=== PATIENT | male | born 1980 | race Caucasian/White ===

== ENCOUNTER 2018-09-09 09:09 | Emergency (ER) | payer MEDICAID ==
[2018-09-09 09:33] VITALS: RESP 16
[2018-09-09] MEDS ORDERED: HYDROmorphone 1 MG/ML 1 ML SYRINGE IVP STA (09:44)
[2018-09-09] MEDS ORDERED: ONDANSETRON 4 MG/2 ML VIAL IVP STA (09:44)
[2018-09-09] MEDS ORDERED: SODIUM CHLORIDE 0.9% 1,000 ML IV STA (09:44)
[2018-09-09] MEDS ORDERED: KETOROLAC 30 MG/ML 1 ML VIAL IVP STA (09:44)
[2018-09-09 10:26] LABS: Appearance,Urine Clear (Clear); Bilirubin,Urine Negative (Negative); Blood,Urine Moderate (Negative); Color,Urine Yellow; Glucose,Urine (UA) Negative (Negative); Ketones,Urine Negative (Negative); Leukocyte Esterase,Urine Negative (Negative); Mucus,Urine Rare /hpf; Nitrite,Urine Negative (Negative); Protein,Urine Trace (Negative); RBC,Urine 30 /hpf (0-5); Specific Gravity,Urine 1.028 (1.001-1.035); Urobilinogen,Urine <2.0 mg/dL (<2.0); WBC,Urine 1 /hpf (0-5)
[2018-09-09 10:27] LABS: Basophils % (A) 0 %; Eosinophils # (A) 0.1 k/uL (0-0.7); Eosinophils % (A) 1 %; HCT 45.4 % (39.0-53.0); HGB 15.5 gm/dL (13.0-17.5); Lymphocytes # (A) 1.4 k/uL (1.0-4.8); Lymphocytes % (A) 14 %; MCH 31.6 pg (25.0-35.0); Mean Platelet Volume 7.9; Monocytes # (A) 0.5 k/uL (0-1.0); Monocytes % (A) 5 %; Neutrophils # (A) 8.3 k/uL (1.3-7.7); Neutrophils % (A) 79 %; Platelet Count 209 k/uL (150-450); RBC 4.89 m/uL (4.30-5.90); RDW 12.6 % (11.5-15.5); WBC 10.5 k/uL (3.8-10.6)
[2018-09-09 10:30] LABS: ALT 22 U/L (21-72); AST 20 U/L (17-59); African American GFR (CKD) >90 (>60 ml/min/1.73 sqM); Albumin 4.4 g/dL (3.5-5.0); Alkaline Phosphatase 64 U/L (38-126); Amylase 49 U/L (30-110); Anion Gap 7 mmol/L; Blood Urea Nitrogen 13 mg/dL (9-20); Calcium 9.1 mg/dL (8.4-10.2); Carbon Dioxide 26 mmol/L (22-30); Chloride 108 mmol/L (98-107); Glucose 103 mg/dL (74-99); Lipase 43 U/L (23-300); Potassium 4.5 mmol/L (3.5-5.1); Sodium 141 mmol/L (137-145); Total Bilirubin 1.1 mg/dL (0.2-1.3); Total Protein 7.2 g/dL (6.3-8.2)
--- NOTE | 2018-09-09 10:37 | XR ---
EXAMINATION TYPE: XR KUB , 2 VIEWS DATE OF EXAM ORDERED: 09/09/2018 HISTORY: abdominal pain. COMPARISON: None. FINDINGS: Abdominal gas pattern is within normal limits. There is no evidence of obstruction or free air. No unusual calcifications are identified. IMPRESSION: NO ACUTE INTRA-ABDOMINAL ABNORMALITY.
--- NOTE | 2018-09-09 10:42 | CT ---
EXAMINATION TYPE: CT abdomen pelvis wo con DATE OF EXAM: 09/09/2018 COMPARISON: NONE HISTORY: Flank pain. CT DLP: 646.2 mGycm Automated exposure control for dose reduction was used. FINDINGS: There is some dependent atelectasis within the dependent portions of the lungs. No definite pleural fluid is seen. Within the abdomen, is evidence of old granulomatous disease within the spleen. The liver and gallbla dder are normal. Both adrenal glands are normal. The right kidney is normal. There is mild hydronephrosis involving the left kidney. There is hydroure ter. There is a 2.5 mm calculus at the left UVJ. Limited views of the pancreas are unremarkable. There is no significant retroperitoneal, iliac or inguinal adenopathy. The bladder is not distended. There is some mucosal thickening involving the sigmoid colon with other areas of mucosal thickening i nvolving the proximal descending colon. The appendix is normal. Small bowel loops are normal in caliber. There is no free fluid and no free air identified. No bony lesion is seen. IMPRESSION: 1. 2.5 MM CALCULUS AT THE LEVEL OF THE LEFT UVJ CAUSING MILD TO MODERATE LEFT-SIDED HYDRONEPHROSIS. 2. AREAS OF THICKENING OF THE COLONIC MUCOSA IN THE SIGMOID COLON AND PROXIMAL ASCENDING COLON. PLEAS E CORRELATE FOR COLITIS.
--- NOTE | 2018-09-09 10:51 | ED ---
General Adult HPI - General Chief complaint: Abdominal Pain Stated complaint: Kidney Stone Time Seen by Provider: 09/09/18 09:30 Source: patient, family, RN notes reviewed Mode of arrival: ambulatory Limitations: no limitations - History of Present Illness Initial comments: This is a 38-year-old male presents emergency Department complaining of a three- day history of left back pain indicating recent. Patient states over the last few days is coming down but this morning it became extremely bad pain in his been constant. Patient states there is no abdominal pain there is no radiation of pain. Patient denies any dysuria hematuria or urinary frequency. Patient denies any fever chills per patient denies any nausea vomiting or diarrhea. Patient has no history of kidney stones but states he has a strong family history of kidney stones. - Related Data Previous Rx's Medication Instructions Recorded Ketorolac [Toradol] 10 mg PO Q6HR #15 tab 09/09/18 Tamsulosin [Flomax] 0.4 mg PO DAILY #10 cap 09/09/18 Allergies Allergy/AdvReac Type Severity Reaction Status Date / Time No Known Allergies Allergy Verified 09/09/18 09:32 Review of Systems ROS Statement: Those systems with pertinent positive or pertinent negative responses have been documented in the HPI. ROS Other: All systems not noted in ROS Statement are negative. Past Medical History Past Medical History: No Reported History History of Any Multi-Drug Resistant Organisms: None Reported Past Surgical History: No Surgical Hx Reported Past Psychological History: No Psychological Hx Reported Smoking Status: Current every day smoker Past Alcohol Use History: Occasional Past Drug Use History: None Reported General Exam - General Exam Comments Initial Comments: GENERAL: Patient is well-developed and well-nourished. Patient is nontoxic and well- hydrated and is in moderate distress. ENT: Neck is soft and supple. No significant lymphadenopathy is noted. Oropharynx is clear. Moist mucous membranes. Neck has full range of motion without eliciting any pain. EYES: The sclera were anicteric and conjunctiva were pink and moist. Extraocular movements were intact and pupils were equal round and reactive to light. Eyelids were unremarkable. PULMONARY: Unlabored respirations. Good breath sounds bilaterally. No audible rales rhonchi or wheezing was noted. CARDIOVASCULAR: There is a regular rate and rhythm without any murmurs gallops or rubs. ABDOMEN: Soft and nontender with normal bowel sounds. No palpable organomegaly was noted. There is no palpable pulsatile mass. SKIN: Skin is clear with no lesions or rashes and otherwise unremarkable. NEUROLOGIC: Patient is alert and oriented x3. Cranial nerves II through XII are grossly intact. Motor and sensory are also intact. Normal speech, volume and content. Symmetrical smile. MUSCULOSKELETAL: Normal extremities with adequate strength and full range of motion. Patient has moderate CVA tenderness LYMPHATICS: No significant lymphadenopathy is noted PSYCHIATRIC: Normal psychiatric evaluation. Limitations: no limitations Course Vital Signs 09/09/18 09:30 Temperature 97.9 F Pulse Rate 61 Respiratory 16 Rate Blood Pressure 136/77 O2 Sat by Pulse 98 Oximetry Medical Decision Making - Medical Decision Making Computed tomography scan shows a left-sided UVJ stone with mild hydroureter and hydronephrosis. I'll begin the room to reevaluate the patient is doing considerably better. Patient was given a liter fluid in the emergency department. - Lab Data Result diagrams: 09/09/18 10:00 09/09/18 10:00 Lab Results 09/09/18 09/09/18 09/09/18 Range/Units 10:00 10:00 10:00 WBC 10.5 (3.8-10.6) k/uL RBC 4.89 (4.30-5.90) m/uL Hgb 15.5 (13.0-17.5) gm/dL Hct 45.4 (39.0-53.0) % MCV 93.0 (80.0-100.0) fL MCH 31.6 (25.0-35.0) pg MCHC 34.0 (31.0-37.0) g/dL RDW 12.6 (11.5-15.5) % Plt Count 209 (150-450) k/uL Neutrophils % 79 % Lymphocytes % 14 % Monocytes % 5 % Eosinophils % 1 % Basophils % 0 % Neutrophils # 8.3 H (1.3-7.7) k/uL Lymphocytes # 1.4 (1.0-4.8) k/uL Monocytes # 0.5 (0-1.0) k/uL Eosinophils # 0.1 (0-0.7) k/uL Basophils # 0.0 (0-0.2) k/uL Sodium 141 (137-145) mmol/L Potassium 4.5 (3.5-5.1) mmol/L Chloride 108 H (98-107) mmol/L Carbon Dioxide 26 (22-30) mmol/L Anion Gap 7 mmol/L BUN 13 (9-20) mg/dL Creatinine 0.95 (0.66-1.25) mg/dL Est GFR (CKD-EPI)AfAm >90 (>60 ml/min/1.73 sqM) Est GFR (CKD-EPI)NonAf >90 (>60 ml/min/1.73 sqM) Glucose 103 H (74-99) mg/dL Calcium 9.1 (8.4-10.2) mg/dL Total Bilirubin 1.1 (0.2-1.3) mg/dL AST 20 (17-59) U/L ALT 22 (21-72) U/L Alkaline Phosphatase 64 (38-126) U/L Total Protein 7.2 (6.3-8.2) g/dL Albumin 4.4 (3.5-5.0) g/dL Amylase 49 (30-110) U/L Lipase 43 (23-300) U/L Urine Color Yellow Urine Appearance Clear (Clear) Urine pH 6.0 (5.0-8.0) Ur Specific [place] 1.028 (1.001-1.035) Urine Protein Trace H (Negative) Urine Glucose (UA) Negative (Negative) Urine Ketones Negative (Negative) Urine Blood Moderate H (Negative) Urine Nitrite Negative (Negative) Urine Bilirubin Negative (Negative) Urine Urobilinogen <2.0 (<2.0) mg/dL Ur Leukocyte Esterase Negative (Negative) Urine RBC 30 H (0-5) /hpf Urine WBC 1 (0-5) /hpf Urine Mucus Rare H (None) /hpf Disposition Clinical Impression: Kidney stone Disposition: HOME SELF-CARE Condition: Good Instructions (If sedation given, give patient instructions): Kidney Stones (ED), How to Strain Your Urine (ED) Prescriptions: Tamsulosin [Flomax] 0.4 mg PO DAILY #10 cap Ketorolac [Toradol] 10 mg PO Q6HR #15 tab Is patient prescribed a controlled substance at d/c from ED?: No Referrals: Phi Ellis MD [Primary Care Provider] - 1-2 days Time of Disposition: 10:49
[2018-09-09] MEDS ORDERED: HYDROmorphone 0.5 MG/0.5 ML SYRINGE IVP STA (11:40)
[2018-09-09 11:51] VITALS: BP 116/77; PULSE 69; TEMP 98.7
== END 2018-09-09 11:53 | disposition home or self-care (01) ==
LOC: EC 09:09
DX: N13.2 Hydronephrosis with renal and ureteral calculous obstruction (principal); F17.200 Nicotine dependence, unspecified, uncomplicated
CPT/HCPCS: 36415; 80053; 82150; 83690; 85025; 81001; 74018; 74176; 99284; 96374; 96375 ×2; 96376; 96361 ×2; J2405; J1885; J1170 ×2

== ENCOUNTER 2021-01-23 10:32 | Emergency (ER) | payer MEDICAID ==
[2021-01-23 11:23] VITALS: BP 124/89; PULSE 73; RESP 18; TEMP 97.8
--- NOTE | 2021-01-23 12:46 | ED ---
General Adult HPI - General Chief complaint: Skin/Abscess/Foreign Body Stated complaint: rash Time Seen by Provider: 01/23/21 11:51 Source: patient Mode of arrival: ambulatory Limitations: no limitations - History of Present Illness Initial comments: 40-year-old male presents to the emergency department for evaluation of rash, onset Monday. Patient states the rash began on his chest after spending time in a hot tub on Monday. States he saw his family doctor who prescribed an antibiotic (bactrim) and topical ointment. Patient reports he stopped taking the antibiotic after 1 dose due to a tingling sensation in his mouth and lips. States the rash continued to spread to his neck and scalp throughout the week. States the rash spread to his hands and feet yesterday and is painful. States his mouth and nose feel raw today. Patient denies fever, chills, headache, ear pain, sore throat, chest pain, difficulty breathing, abdominal pain, nausea, vomiting, constipation, diarrhea, and dysuria. Additionally, patient does state that he was treated with 2 rounds of a Z-Nikolay, oral steroids, and two inhalers approximately 2-3 weeks ago for an upper respiratory that was concerning for COVID. - Related Data Home Medications Medication Instructions Recorded Confirmed Dextroamphetamine/Amphetamine 20 mg PO DAILY 09/09/18 09/09/18 [Adderall] Previous Rx's Medication Instructions Recorded Ketorolac [Toradol] 10 mg PO Q6HR #15 tab 09/09/18 Tamsulosin [Flomax] 0.4 mg PO DAILY #10 cap 09/09/18 predniSONE [Deltasone] See Taper PO DAILY 12 Days #12 tab 01/23/21 Allergies Allergy/AdvReac Type Severity Reaction Status Date / Time No Known Allergies Allergy Verified 01/23/21 11:23 Review of Systems ROS Statement: Those systems with pertinent positive or pertinent negative responses have been documented in the HPI. ROS Other: All systems not noted in ROS Statement are negative. Past Medical History Past Medical History: No Reported History History of Any Multi-Drug Resistant Organisms: None Reported Past Surgical History: No Surgical Hx Reported Past Psychological History: No Psychological Hx Reported Smoking Status: Current every day smoker Past Alcohol Use History: Occasional Past Drug Use History: None Reported General Exam Limitations: no limitations General appearance: alert (This is a well-developed, well-nourished male in no acute distress. Initial temperature 97.8, pulse 73, respirations 18, blood pressure 124/89, pulse ox 98% on room air.), in no apparent distress Eye exam: Present: normal appearance, PERRL, EOMI, other (Denies pain) ENT exam: Present: mucous membranes moist (Intact with no blistering, scabbing, or erosions), other (Small area of erosion on the hard palate; no lesions, blisters, or ulcers noted.) Neck exam: Present: full ROM, other (Maculopapular rash coalescing on the anterior aspect of neck; scattered appearance of maculopapular rash on posterior aspect neck). Absent: lymphadenopathy Respiratory exam: Present: normal lung sounds bilaterally. Absent: respiratory distress, wheezes, rales, rhonchi, stridor, chest wall tenderness Cardiovascular Exam: Present: regular rate, normal rhythm, normal heart sounds. Absent: systolic murmur, diastolic murmur, rubs, gallop, clicks GI/Abdominal exam: Present: soft, normal bowel sounds. Absent: distended, tenderness, guarding, rebound, rigid Neurological exam: Present: alert, oriented X3, CN II-XII intact Psychiatric exam: Present: normal affect, normal mood Skin exam: Present: warm, dry, rash Expanded Type of lesion: Present: rash Distribution of rash: other (Confluent, urticarial rash on anterior chest wall extending to the neck. Scattered maculopapular rash on upper back extending to the posterior aspect of the neck and scalp. Painful erythematous coalescing lesions on the palms. Painful scattered erythematous lesions soles.) Course Vital Signs 01/23/21 11:20 Temperature 97.8 F Pulse Rate 73 Respiratory 18 Rate Blood Pressure 124/89 O2 Sat by Pulse 98 Oximetry - Reevaluation(s) Reevaluation #1: 01/23/21 13:17 Dr. Huerta present at bedside to evaluate patient. 01/23/21 15:22 Patient is resting comfortably. Reports itching is less intense. Present at bedside. 01/23/21 16:[address] Wilkinson regarding patient's pattern of rash. He recommended additional blood work, Solu-Medrol, and discharge home with oral steroid taper pack; follow-up with dermatology. Medical Decision Making - Medical Decision Making 40-year-old male presents to the emergency department for evaluation of extensive rash. Patient is well-appearing with a diffuse, coalescing, erythematous rash on the anterior upper chest extending to the neck. Has a maculopapular rash on the upper back extending to the neck and scalp. Developed painful erythematous lesions on the palms and soles yesterday. Also has a small erosion on the hard palate. No blistering, ulcerations, or scabbing noted to oral mucosa. 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 All resulted labs were within normal limits. Syphilis and HIV serology is pending. This patient's case was discussed with my attendings, Dr. Duncan and Dr. Huerta. In addition, I did speak with Dr. Wilkinson who recommends a dose of IV steroids, followed by an oral taper regimen. Patient was instructed to follow-up with dermatology for further evaluation and treatment. Return parameters were discussed in detail. Patient verbalizes understanding and agrees with this plan. - Lab Data Result diagrams: 01/23/21 12:55 01/23/21 12:55 Lab Results 01/23/21 01/23/21 Range/Units 12:55 12:55 WBC 7.2 (3.8-10.6) k/uL RBC 4.70 (4.30-5.90) m/uL Hgb 15.8 (13.0-17.5) gm/dL Hct 45.6 (39.0-53.0) % MCV 97.0 (80.0-100.0) fL MCH 33.6 (25.0-35.0) pg MCHC 34.6 (31.0-37.0) g/dL RDW 13.1 (11.5-15.5) % Plt Count 206 (150-450) k/uL MPV 8.3 Neutrophils % 70 % Lymphocytes % 21 % Monocytes % 4 % Eosinophils % 2 % Basophils % 1 % Neutrophils # 5.0 (1.3-7.7) k/uL Lymphocytes # 1.5 (1.0-4.8) k/uL Monocytes # 0.3 (0-1.0) k/uL Eosinophils # 0.2 (0-0.7) k/uL Basophils # 0.1 (0-0.2) k/uL ESR 6 (0-15) mm/hr Sodium 138 (137-145) mmol/L Potassium 3.9 (3.5-5.1) mmol/L Chloride 105 (98-107) mmol/L Carbon Dioxide 27 (22-30) mmol/L Anion Gap 6 mmol/L BUN 12 (9-20) mg/dL Creatinine 0.75 (0.66-1.25) mg/dL Est GFR (CKD-EPI)AfAm >90 (>60 ml/min/1.73 sqM) Est GFR (CKD-EPI)NonAf >90 (>60 ml/min/1.73 sqM) Glucose 95 (74-99) mg/dL Calcium 9.4 (8.4-10.2) mg/dL Total Bilirubin 1.0 (0.2-1.3) mg/dL AST 26 (17-59) U/L ALT 29 (4-49) U/L Alkaline Phosphatase 86 (38-126) U/L C-Reactive Protein 0.5 (<1.0) mg/dL Total Protein 7.1 (6.3-8.2) g/dL Albumin 4.1 (3.5-5.0) g/dL Disposition Clinical Impression: Dermatitis Disposition: HOME SELF-CARE Condition: Stable Instructions (If sedation given, give patient instructions): Dermatitis (ED) Additional Instructions: Take oral steroids as prescribed. Follow-up with dermatology as directed. Return to the emergency department with any progression of illness, worsening, or concerning symptoms. Prescriptions: predniSONE [Deltasone] See Taper PO DAILY 12 Days #12 tab Is patient prescribed a controlled substance at d/c from ED?: No Referrals: Phi Ellis MD [Primary Care Provider] - 1-2 days Honorio Byrd MD [STAFF PHYSICIAN] - 1-2 days Time of Disposition: 16:03
[2021-01-23] MEDS ORDERED: SODIUM CHLORIDE 0.9% 1,000 ML IV STA (13:06)
[2021-01-23] MEDS ORDERED: diphenhydrAMINE 50 MG/ML 1 ML VIAL IVP STA (13:06)
[2021-01-23 13:16] LABS: Basophils # (A) 0.1 k/uL (0-0.2); Basophils % (A) 1 %; Eosinophils # (A) 0.2 k/uL (0-0.7); Eosinophils % (A) 2 %; HCT 45.6 % (39.0-53.0); HGB 15.8 gm/dL (13.0-17.5); Lymphocytes # (A) 1.5 k/uL (1.0-4.8); Lymphocytes % (A) 21 %; MCH 33.6 pg (25.0-35.0); MCHC 34.6 g/dL (31.0-37.0); Mean Platelet Volume 8.3; Monocytes # (A) 0.3 k/uL (0-1.0); Monocytes % (A) 4 %; Neutrophils % (A) 70 %; Platelet Count 206 k/uL (150-450); RDW 13.1 % (11.5-15.5); WBC 7.2 k/uL (3.8-10.6)
[2021-01-23 13:30] LABS: ALT 29 U/L (4-49); AST 26 U/L (17-59); African American GFR (CKD) >90 (>60 ml/min/1.73 sqM); Albumin 4.1 g/dL (3.5-5.0); Alkaline Phosphatase 86 U/L (38-126); Anion Gap 6 mmol/L; Blood Urea Nitrogen 12 mg/dL (9-20); C Reactive Protein 0.5 mg/dL (<1.0); Calcium 9.4 mg/dL (8.4-10.2); Carbon Dioxide 27 mmol/L (22-30); Chloride 105 mmol/L (98-107); Glucose 95 mg/dL (74-99); Non-African American GFR(CKD) >90 (>60 ml/min/1.73 sqM); Potassium 3.9 mmol/L (3.5-5.1); Sodium 138 mmol/L (137-145); Total Protein 7.1 g/dL (6.3-8.2)
[2021-01-23 15:03] LABS: Erythrocyte Sedimentation Rate 6 mm/hr (0-15)
[2021-01-23] MEDS ORDERED: methylPREDNISolone SOD SUCCI 125 MG/2 ML VIAL IV STA (15:30)
[2021-01-25 15:37] LABS: HIV 2 AB Non-Reactive (Non-Reactive); HIV AB P24 Non-Reactive (Non-Reactive); HIV P24 AG Non-Reactive (Non-Reactive)
== END 2021-01-23 16:40 | disposition home or self-care (01) ==
LOC: EC 10:32
DX: L30.9 Dermatitis, unspecified (principal); F17.200 Nicotine dependence, unspecified, uncomplicated; Z20.822 Contact with and (suspected) exposure to COVID-19
CPT/HCPCS: 36415; 80053; 85652; 85025; 86140; 86780; 87390; 99284; 96374; 96375; 96361; J1200; J2930

== ENCOUNTER 2021-10-22 11:58 | Emergency (ER) | payer MEDICAID ==
[2021-10-22 12:01] VITALS: PULSE 80
[2021-10-22] MEDS ORDERED: LIDOCAINE 1% INJ 10MG/ML (5 ML VIAL-PF) SQ ONE (12:24)
--- NOTE | 2021-10-22 12:54 | ED ---
General Adult HPI - General Chief complaint: Skin/Abscess/Foreign Body Stated complaint: Abcess Time Seen by Provider: 10/22/21 12:00 Source: patient, RN notes reviewed, old records reviewed Mode of arrival: ambulatory Limitations: no limitations - History of Present Illness Initial comments: This is a 41-year-old male presents emergency Department complaining that he has an abscess in the perineum area. Patient states she's had one before and usually her Biaxin resolved. Patient states it started about week ago. 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 Patient denies any fever chills. Patient denies any pain in the rectum. - Related Data Home Medications Medication Instructions Recorded Confirmed Amoxic-Pot Clav 875-125Mg 1 tab PO BID 10/22/21 10/22/21 [Augmentin 875-125] Previous Rx's Medication Instructions Recorded Sulfamethox-Tmp 800-160Mg [Bactrim 1 each PO Q12HR #20 tab 10/22/21 DS 800-160 mg] Allergies Allergy/AdvReac Type Severity Reaction Status Date / Time No Known Allergies Allergy Verified 10/22/21 12:28 Review of Systems ROS Statement: Those systems with pertinent positive or pertinent negative responses have been documented in the HPI. ROS Other: All systems not noted in ROS Statement are negative. Past Medical History Past Medical History: No Reported History History of Any Multi-Drug Resistant Organisms: None Reported Past Surgical History: No Surgical Hx Reported Past Psychological History: No Psychological Hx Reported Smoking Status: Current every day smoker Past Alcohol Use History: Occasional Past Drug Use History: None Reported General Exam - General Exam Comments Initial Comments: GENERAL Patient is well-developed and well-nourished. Patient is in mild distress. EYES Patient's pupils are equal and round. Extraocular motion is intact SKIN In the perineum there is a abscess just left of midline is fluctuant there is no redness is extremely painful to palpation. NEURO The patient is alert and oriented 3 PYSCH Patient has normal interpersonal interactions. MUSCULOSKELETAL All 4 extremities have full range of motion Limitations: no limitations Course Vital Signs 10/22/21 11:59 Temperature 98.1 F Pulse Rate 80 Respiratory 20 Rate Blood Pressure 129/83 O2 Sat by Pulse 97 Oximetry Procedures - Incision & Drainage Consent Obtained: verbal consent Site: other (Perineum just left of midline) Anesthetic Used: lidocaine 1% I&D Cleaning Method: Betadine Scalpel Used: #15 Needle Aspiration Performed?: No Irrigation Performed?: No I&D Drainage Obtained: Pus Culture Obtained?: Yes Complications: pain Medical Decision Making - Medical Decision Making Copious amount of pus was drained. Disposition Clinical Impression: Perirectal abscess Disposition: HOME SELF-CARE Instructions (If sedation given, give patient instructions): Abscess Incision and Drainage (ED), Abscess (ED) Additional Instructions: If fluid reaccumulate patient needs to return to the emergency department patient should also return if there is any fevers or any new symptoms. Prescriptions: Sulfamethox-Tmp 800-160Mg [Bactrim DS 800-160 mg] 1 each PO Q12HR #20 tab Is patient prescribed a controlled substance at d/c from ED?: No Referrals: Phi Ellis MD [Primary Care Provider] - 1-2 days Time of Disposition: 12:53
[2021-10-22 13:13] VITALS: BP 127/88; RESP 18; TEMP 98.6
== END 2021-10-22 13:13 | disposition home or self-care (01) ==
LOC: EC 11:58
DX: K61.1 Rectal abscess (principal); F17.200 Nicotine dependence, unspecified, uncomplicated
CPT/HCPCS: 87070; 87205; 10060; 99282; J2001

== ENCOUNTER 2022-10-29 13:07 | Emergency (ER) | payer MEDICAID ==
[2022-10-29 13:12] VITALS: TEMP 98
[2022-10-29] MEDS ORDERED: MORPHINE SULFATE 4 MG/ML SYRINGE IVP STA (13:26)
[2022-10-29] MEDS ORDERED: ONDANSETRON 4 MG/2 ML VIAL IVP STA (13:34)
[2022-10-29] MEDS ORDERED: LIDOCAINE 2% INJ 20 MG/ML (20 ML MDV) SQ STA (13:37)
[2022-10-29] MEDS ORDERED: HYDROmorphone 1 MG/ML 1 ML SYRINGE IVP STA (13:45)
[2022-10-29] MEDS ORDERED: SODIUM CHLORIDE 0.9% 1,000 ML IV ONE (13:58)
--- NOTE | 2022-10-29 14:08 | XR ---
EXAMINATION TYPE: XR foot limited LT, XR ankle limited LT DATE OF EXAM: 10/29/2022 1:52 PM INDICATION: Patient age:Male; 42 years old; Reason for study: trauma; [facility]. COMPARISON: None TECHNIQUE: The left foot was examined in the AP and lateral projections. The left ankle is examined in AP and lateral projections. FINDINGS: No evidence of any acute osseous pathology. No evidence of soft tissue swelling. Joints are preserve d. Incidental note is made of symphalangism of the fifth distal interphalangeal joint. IMPRESSION: No evidence of acute fracture.
--- NOTE | 2022-10-29 14:49 | ED ---
Wound/Laceration HPI - General Chief Complaint: Wound/Laceration Stated Complaint: Left Leg Laceration Time Seen by Provider: 10/29/22 13:22 Source: patient Mode of arrival: wheelchair Limitations: no limitations - History of Present Illness Initial Comments: Patient is a 42-year-old male presents emergency room with a laceration to his left lower leg which he obtained by accident while he was cutting wood with his chainsaw prior to arrival. He was able to control bleeding at the scene with a pressure dressing of a towel with duct tape. He reports some numbness and tingling in his foot but believes that this was due to the dressing as after the dressing was removed numbness and tingling subsided. Range of motion is painful in his ankle and lower limb but is full. He denies any injury to any other location. He is unsure regarding his tetanus status. Overall he is healthy and does not take any medications on a regular basis. - Related Data Home Medications Medication Instructions Recorded Confirmed Dextroamphetamine/Amphetamine 15 mg PO DAILY 11/03/22 11/04/22 [Adderall Xr 15 mg Capsule] Previous Rx's Medication Instructions Recorded HYDROcodone/APAP 5-325MG [[place] 1 - 2 tab PO Q6HR PRN 3 Days #24 10/29/22 5-325] tab Aspirin 81 mg PO BID 30 Days #60 tab 11/04/22 Cyclobenzaprine [Flexeril] 5 mg PO TID PRN 10 Days #30 tablet 11/04/22 Diclofenac Sodium [Voltaren] 75 mg PO BID 30 Days #60 tab 11/04/22 traMADol HCL 50 mg PO Q6H 7 Days #28 tab 11/04/22 Allergies Allergy/AdvReac Type Severity Reaction Status Date / Time No Known Allergies Allergy Verified 11/04/22 11:47 Review of Systems ROS Statement: Those systems with pertinent positive or pertinent negative responses have been documented in the HPI. ROS Other: All systems not noted in ROS Statement are negative. Past Medical History Past Medical History: No Reported History History of Any Multi-Drug Resistant Organisms: None Reported Past Surgical History: No Surgical Hx Reported Past Psychological History: No Psychological Hx Reported Smoking Status: Current every day smoker Past Alcohol Use History: Occasional Past Drug Use History: None Reported General Exam Limitations: no limitations General appearance: alert, in no apparent distress Head exam: Present: atraumatic, normocephalic, normal inspection Eye exam: Present: normal appearance, PERRL, EOMI. Absent: scleral icterus, conjunctival injection, periorbital swelling ENT exam: Present: normal exam, mucous membranes moist Neck exam: Present: normal inspection, full ROM Respiratory exam: Absent: respiratory distress, accessory muscle use Cardiovascular Exam: Present: regular rate GI/Abdominal exam: Present: soft. Absent: distended, tenderness, guarding, rebound, rigid Left Lower Leg exam: Present: full ROM, tenderness, swelling, laceration (Overall length 3 separate irregular lacerations with 2 lower lacerations merging toget her upper laceration approximately 6 cm in diameter with other two proximal approximately 3 and 4 cm respectively). Absent: abrasion, ecchymosis, deformity, crepitus, dislocation Foot/Toe exam: Present: normal inspection Neurovascular tendon exam: Present: no vascular compromise. Absent: pulse deficit, abnormal cap refill, sensory deficit, extremity cold to touch, pallor, foot drop Gait: observed and limited by pain Back exam: Present: normal inspection Neurological exam: Present: alert, oriented X3, CN II-XII intact Psychiatric exam: Present: normal affect, normal mood Skin exam: Present: other (Lacerations to left lower extremity as above) Course Vital Signs 10/29/22 10/29/22 10/29/22 13:09 13:58 15:14 Temperature 98.0 F Pulse Rate 68 76 Respiratory 18 20 Rate Blood Pressure 132/85 112/82 110/74 O2 Sat by Pulse 96 97 Oximetry Procedures - Laceration Laceration #1 Consent Obtained: verbal consent Indication: laceration Size (cm): 13 (Overall length 3 separate irregular lacerations with 2 lower lacerations merging together upper laceration approximately 6 cm in diameter with other two proximal approximately 3 and 4 cm respectively) Description: linear, flap, irregular Depth: simple, single layer Anesthetic Used: lidocaine 2% Anesthesia Technique: local infiltration Amount (mls): 2 Pre-repair: wound explored, irrigated extensively, deep structures intact Size of Sutures: 4-0 Number of Sutures: 18 Technique: simple, interrupted Patient Tolerated Procedure: well, no complications Medical Decision Making - Medical Decision Making Was pt. sent in by a medical professional or institution (, PA, MANAGER CUSTOM, urgent care, hospital, or penitentiary...) When possible be specific @ -No Did you speak to anyone other than the patient for history (EMS, parent, family, police, friend...)? What history was obtained from this source @ -No Did you review nursing and triage notes (agree or disagree)? Why? @ -I reviewed and agree with nursing and triage notes Were old charts reviewed (outside hosp., previous admission, EMS record, old EKG, old radiological studies, urgent care reports/EKG's, penitentiary records)? Report findings @ -No old charts were reviewed Differential Diagnosis (chest pain, altered mental status, abdominal pain women, abdominal pain men, vaginal bleeding, weakness, fever, dyspnea, syncope, headache, dizziness, GI bleed, back pain, seizure, CVA, palpatations, mental health, musculoskeletal)? @ -Differential Musculoskeletal Muscular strain, contusion, ligament sprain, fracture, arthritis, septic arthritis, bursitis, cellulitis, muscle spasm, nerve compression, DVT, arterial occlusion, herpes zoster, electrolyte abnormality, tumor.... This is not meant to be in all inclusive list EKG interpreted by me (3pts min.). @ -None done X-rays interpreted by me (1pt min.). @ -X-ray left foot and ankle no fracture, dislocation or foreign body. CT interpreted by me (1pt min.). @ -None done U/S interpreted by me (1pt. min.). @ -None done What testing was considered but not performed or refused? (CT, X-rays, U/S, labs)? Why? @ -None What meds were considered but not given or refused? Why? @ -None Did you discuss the management of the patient with other professionals (professionals i.e. , PA, MANAGER CUSTOM, lab, RT, psych nurse, social sciences professor, animal control specialist, t eacher, medical corps officer, director case)? Give summary @ -No Was smoking cessation discussed for >3mins.? @ -No Was critical care preformed (if so, how long)? @ -No Were there social determinants of health that impacted care today? How? (Homelessness, low income, unemployed, alcoholism, drug addiction, transportation, low edu. Level, literacy, decrease access to med. care, senior care, rehab)? @ -No Was there de-escalation of care discussed even if they declined (Discuss DNR or withdrawal of care, Hospice)? DNR status @ -No What co-morbidities impacted this encounter? (DM, HTN, Smoking, COPD, CAD, Cancer, CVA, ARF, Chemo, Hep., AIDS, mental health diagnosis, sleep apnea, morbid obesity)? @ -None Was patient admitted / discharged? Hospital course, mention meds given and ro josef, prescriptions, significant lab abnormalities, going to OR and other pertinent info. @ -42-year-old male presenting the emergency room with laceration to left lower extremity which he obtained while cutting wood with a chainsaw prior to his arrival. Bleeding was controlled on the scene. Will obtain x-ray of the lower extremity of ankle and foot to evaluate for any osseous pathology or foreign objects. Will plan for suture closure of lacerations after x-ray. Antibiotic therapy orally will be provided and pending x-ray will plan for IV versus no IV antibiotic therapy. Tetanus vaccination status unsure will update tetanus. X-ray negative for fracture, subluxation or foreign body. No indication for IV antibiotics. Will discharge with oral antibiotic therapy empirically given setting of injury. Due to severity of wound will give short course of [place] to utilize for pain as needed. Patient tolerated laceration closure well with localized infiltration of lidocaine and IV pain medication administration. Wound care discussed at length with patient and spouse at bedside. Questions and concerns answered. Return parameters emergency room discussed. Will discharge home in stable condition with sutures intact to lacerations to the left lower extremity advising return to the emergency department 7-10 days for suture removal and follow-up patient primary care provider as needed. Undiagnosed new problem with uncertain prognosis? @ -No Drug Therapy requiring intensive monitoring for toxicity (Heparin, Nitro, In sulin, Cardizem)? @ -No Were any procedures done? @ -Yes, laceration closure, see procedure for details. Diagnosis/symptom? @ -Laceration Acute, or Chronic, or Acute on Chronic? @ -Acute Uncomplicated (without systemic symptoms) or Complicated (systemic symptoms)? @ -Uncomplicated Side effects of treatment? @ -No Exacerbation, Progression, or Severe Exacerbation? @ -No Poses a threat to life or bodily function? How? (Chest pain, [place], AR, pneumonia, PE, COPD, DKA, ARF, appy, cholecystitis, CVA, Diverticulitis, Homicidal, Suicidal, threat to staff... and all critical care pts) @ -No Case discussed with Dr. Duncan. - Radiology Data Radiology results: report reviewed, image reviewed Disposition Clinical Impression: Laceration Disposition: HOME SELF-CARE Condition: Stable Instructions (If sedation given, give patient instructions): Care For Your Stitches (ED), Laceration (ED) Additional Instructions: Please keep wound clean and dry. Monitor for signs and symptoms of infection and seek medical attention as appropriate if symptoms occur. Please return to the emergency department for suture removal in 7-10 days. Please return to the Emergency Department if symptoms worsen or any other concerns. Prescriptions: HYDROcodone/APAP 5-325MG [[place] 5-325] 1 - 2 tab PO Q6HR PRN 3 Days #24 tab PRN Reason: Pain Is patient prescribed a controlled substance at d/c from ED?: Yes When asked, does pt state using other controlled substances?: No If prescribed controlled substance>3 days was MAPS reviewed?: Prescribed <3 Days If opioid is for acute pain is fill amount 7 days or less?: Yes Referrals: Phi Ellis MD [Primary Care Provider] - 1-2 days Time of Disposition: 14:49
[2022-10-29] MEDS ORDERED: DIPH,PERTUS(ACELL)TETVAC-LF 0.5 ML VIAL IM ONE (14:52)
[2022-10-29 15:16] VITALS: BP 110/74; PULSE 76; RESP 20
== END 2022-10-29 15:16 | disposition home or self-care (01) ==
LOC: EC 13:07
DX: S81.812A Laceration without foreign body, left lower leg, initial encounter (principal); F17.200 Nicotine dependence, unspecified, uncomplicated; Z23 Encounter for immunization; W31.2XXA Contact with powered woodworking and forming machines, initial encounter
CPT/HCPCS: 73600; 73620; 90715; 99283; 96374; 96375 ×2; 96361; 12005; 90471; J2001; J2270; J2405; J1170

== ENCOUNTER → 2022-10-31 | Outpatient (CLI) | payer MEDICAID ==
--- NOTE | 2022-11-02 18:46 | MR ---
EXAMINATION TYPE: MR ankle LT wo con DATE OF EXAM: 10/31/2022 COMPARISON: Radiograph 10/29/2022 HISTORY: 42-year-old male Lt ankle injury, Anterior ankle laceration from chainsaw, unable to bend an kle. S86.222A LACERAT MUSC/TEND ANT GRP AT LOW LEG LEVE TECHNIQUE: Multiplanar, multisequence images of the left ankle were obtained without IV contrast. FINDINGS: There is severe soft tissue swelling at the ankle. There is a through thickness defect through the tibialis anterior located 2.7 cm above the ankle join t line. The defect measures approximately 1.7 cm long. Refer to sagittal images 15 and 19 for the end s of the tendon. Secondary angulation and redundancy of the tibialis anterior at the level of the hin dfoot. The adjacent extensor hallucis longus and extensor digitorum longus appear intact. No evident injury to the underlying bone. No acute or healing fracture. No suspicious bone marrow lay ma. The tibiotalar joint is intact with small effusion along the posterior aspect of the joint. Subtalar joint is aligned. Preserved fatty signal in the sinus Tarsi. The tarsal tunnel is clear. There is pronounced thickening and inhomogeneous signal of the distal posterior tibial tendon fibers that courses along the plantar aspect of the foot. Moderate fluid along the distal fibers and suspect ed small insertional tear at the navicular. The deltoid spring ligament complex appears intact. The lateral peroneal tendons and lateral ligamentous complex appears intact. The syndesmosis appears intact. Mild thickening at the origin of the plantar fascia up to 5 mm with inhomogeneous signal of the deep fibers. Correlate for symptoms of plantar fasciitis. The Achilles tendon is intact. IMPRESSION: 1. Through thickness laceration of the tibialis anterior located approximately 2.7 cm above the ankle joint line. There is minimal retraction of the distal stump resulting in a defect spanning 1.7 cm. 2. Secondary extensive subcutaneous soft tissue swelling. 3. Moderate to severe distal tendinosis of the tibialis posterior especially of the fibers that cours e along the plantar aspect of the foot. There may be a tiny intrasubstance insertional tear of the fi bers that insert on the navicular. Associated tenosynovitis. 4. Mild thickening and increased signal at the origin of plantar fascia. Correlate for any symptoms o f plantar fasciitis.
== END | disposition home or self-care (01) ==
LOC: RADMRIMAIN 10:22
PROVIDERS: ATTEND Orthopaedic Surgery
DX: S86.222A Laceration of muscle(s) and tendon(s) of anterior muscle group at lower leg level, left leg, initial encounter (principal); M79.89 Other specified soft tissue disorders; M65.872 Other synovitis and tenosynovitis, left ankle and foot; F17.200 Nicotine dependence, unspecified, uncomplicated; X58.XXXA Exposure to other specified factors, initial encounter

== ENCOUNTER 2022-11-04 11:30 | Day surgery (SDC) | payer MEDICAID ==
[~2022-11-04 11:30] MED LIST: DEXAMETHASONE SOD PHOSPHATE 4 MG/ML 1 ML VIAL IV ONE; LIDOCAINE 1% (10MG/ML) FOR IV START INTRADERMA PRN; ONDANSETRON 4 MG/2 ML VIAL IVP ONE
[2022-11-04 11:55] VITALS: RESP 16
[2022-11-04] MEDS: LACTATED RINGERS 1,000 ML IV SCH ×2 (12:10→16:27)
[2022-11-04] MEDS ORDERED: PROPOFOL 10 MG/ML 20 ML VIAL IV ONE (13:50)
[2022-11-04] MEDS ORDERED: SUCCINYLCHOLINE CHLORIDE 200 MG/10 ML VIAL IV ONE (13:50)
[2022-11-04] MEDS ORDERED: fentaNYL (PF) 50 MCG/ML 2 ML AMP ONE (13:50)
[2022-11-04] MEDS ORDERED: MIDAZOLAM 2 MG/2 ML VIAL ONE (13:50)
[2022-11-04] MEDS ORDERED: KETAMINE 10 MG/ML 20 ML VIAL ONE (13:50)
[2022-11-04] MEDS ORDERED: LIDOCAINE 4% LTA KIT (4 ML) TOPICAL ONE (13:50)
[2022-11-04] MEDS ORDERED: BUPIVACAINE (PF) 0.5% 30 ML VIAL SQ ONE (15:27)
[2022-11-04 15:48] VITALS: TEMP 97
[2022-11-04] MEDS: HYDROmorphone 0.5 MG/0.5 ML SYRINGE IVP PRN ×3 (15:49→16:08)
--- NOTE | 2022-11-04 16:10 | P.OP ---
Date of Procedure: 11/04/22 Preoperative Diagnosis: 1. Left traumatic tibialis anterior tendon rupture 2. Current everyday cigarette smoker Postoperative Diagnosis: Same Procedure(s) Performed: 1. Open repair left tibialis anterior tendon laceration 2. Left gastrocnemius recession obtained through a separate incision Anesthesia: KEN Surgeon: Christian Lomeli [employer]erg[employer] Boat Finisher #1: Capri Mohr Estimated Blood Loss (ml): 10 IV fluids (ml): 800 Pathology: none sent Condition: stable Disposition: PACU Indications for Procedure: The patient is a very pleasant 42-year-old male with a medical history significant for smoking who sustained atraumatic chainsaw injury to the anterior aspect of his left ankle. He was seen in the emergency department where his wound was irrigated and closed. He presented to see me in the office. Based on the location of the traumatic lacerations and his inability to dorsiflex the ankle without recruitment of the EHL tendon. I obtained an MRI to confirm this. The MRI showed a full thickness laceration of the tibialis anterior tendon. I had a long discussion with the patient and his who is a registered nurse at this facility. Based on the patient's young age and activity level my recommendation was to explore the wound and perform a primary end-to-end repair of the tibialis anterior laceration. We also discussed the potential for needing a gastrocnemius recession if under anesthesia he did not have at least 5 of ankle dorsiflexion with the knee extended. We discussed the potential risks and complications of surgery at length including but certainly not limited to risks from anesthesia, superficial infection, deep infection, damage to local blood vessels or nerves including the sural nerve or deep peroneal nerve, rerupture, stiffness, weakness, and inability to regain preinjury level of funct ion, delayed wound healing, DVT, PE, other medical complications, and possibly loss of life or limb. The patient voiced his understanding these potential complications were also acknowledging that other less common complications are possible. He provided both his verbal and written consent to go forward with surgery. He was strongly encouraged to quit smoking in the perioperative period to lower his risk of wound complications, infection, or rerupture. Operative Findings: There was a full-thickness traumatic laceration of the tibialis anterior tendon at the level of the ankle joint. The distal stump had several centimeters of healthy tissue proximal to the insertion allowing for an end-to-end repair. The more proximal tendon had retracted. With the patient under anesthesia I was unable to dorsiflex the ankle past neutral with the knee extended but there was dorsiflexion of 15 with the knee bent to 90 and I interpreted this as an isolated gastrocnemius equinus contracture requiring a gastrocnemius recession to take tension off of the tibialis anterior tendon repair. Description of Procedure: The patient was identified in preoperative holding and the correct left leg was marked with my initials. I reviewed the consent form with the patient and his . All their questions were answered. The patient was then brought back to the operating room by anesthesia. He was given a general anesthetic and preoperative antibiotics The dressing was taken down over his ankle and the wound examined. Sutures are removed from the more distal traumatic wound. With the patient under anesthesia a Silfverskiold test was performed. With the knee extended I was unable to dorsiflex the ankle to neutral and with the patient's knee bent to 90 I was able to actively dorsiflex to 15. I interpreted this as an isolated gastrocnemius contracture. The patient's left leg was then prepped and draped in the standard sterile fashion. Prior to starting surgery timeout was performed identifying the correct patient, operative extremity, and procedure. The patient's leg was then elevated with an Esmarch bandage and the tourniquet was inflated to 250 mmHg. I began by opening the more distal traumatic wound over the anterior ankle to confirm a full-thickness tibialis anterior tendon rupture. The traumatic wound was opened and extended several centimeters medially. The sheath over the tibialis anterior tendon was hemorrhagic and incised longitudinally in line with the skin incision. Immediately upon opening the tendon sheath there was a small hematoma which was evacuated. The distal stump of the tibialis anterior tendon was identified and clamped with an Allis clamp. I then probed proximally in the tendon sheath with a hemostat was unable to recover the more proximal stump. The proximal incision was then extended proximally along the tendon sheath with a scalpel. Dissection was carried down and the tendon sheath was sharply incised. The more proximal tendon was identified and clamped with an Allis clamp. At this point attention was turned to the gastrocnemius recession. A 3 cm incision was made 1 thumb breadth posterior to the tibia at the distal medial muscle belly of the gastrocnemius. Dissection was carried down through the subcutaneous tissue to the superficial fascia which was incised in line with the skin incision. I bluntly developed the interval between the soleus fascia and gastrocnemius aponeurosis and between the gastrocnemius aponeurosis and superficial fascia. The aponeurosis of the gastrocnemius was isolated with a right angle retractors and cut from medial to lateral in its entirety after verifying the nerve was not adherent to the aponeurosis. The wound was then thoroughly irrigated and closed in layers. Attention was then turned back to the tibialis anterior tendon repair. Using #2 Orthocord both the proximal and distal stumps were sutured with a modified Krakw stitch. The more proximal stump was then shuttled into the distal incision within the sheath. With the ankle held at neutral dorsiflexion both limbs of the repair were tied nicely reapproximating the laceration. The repair site was oversewn with an 0 Vicryl. There was a merrill repair that was stable to passive or's of flexion and plantar flexion of the ankle. The wound was then thoroughly irrigated. The inferior extensor retinaculum and tendon sheath were repaired with 0 Vicryl. The deep subcu was reapproximated with 3-0 Monocryl. The skin was closed with 3-0 nylon horizontal mattress sutures. The tourniquet was let down. A well-padded bulky Bush splint was placed with the ankle in neutral. I verified that all instrument, sponge, and sharp counts were correct. The patient was then awoken from his anesthetic extremity or table to a gurney and brought to recovery having tolerated the procedure well. Capri Mohr PA-C was required as a skilled social work assistant due to complexity of the surgery for positioning, exposure, retraction, repair, closure, application of dressing and splint. Plan: The patient is going to discharge home as an outpatient. He is to be strictly nonweightbearing in a bulky Bush splint. He is given pain medication, a muscle relaxant, and aspirin 81 mg daily for DVT prophylaxis. He will follow- up in the office in 2 weeks for splint removal and wound check. He will then be transitioned into a short leg nonweightbearing cast for an additional 4 weeks. Strongly encouraged to quit smoking.
[2022-11-04 17:04] VITALS: BP 133/93; PULSE 67
== END 2022-11-04 17:23 | disposition home or self-care (01) ==
LOC: OR 11:30
PROVIDERS: ATTEND Orthopaedic Surgery
DX: S86.912A Strain of unspecified muscle(s) and tendon(s) at lower leg level, left leg, initial encounter (principal); F17.210 Nicotine dependence, cigarettes, uncomplicated; I10 Essential (primary) hypertension; Z82.49 Family history of ischemic heart disease and other diseases of the circulatory system; Z79.899 Other long term (current) drug therapy; Z86.59 Personal history of other mental and behavioral disorders
CPT/HCPCS: 27664; 27687; J2250; J0330; J1100; J0690; J2405; J3010; J2704; J1170; J0665

== ENCOUNTER → 2022-11-11 | Outpatient (CLI) | payer MEDICAID ==
--- NOTE | 2022-11-11 14:36 | US ---
EXAMINATION TYPE: US venous doppler duplex LE LT DATE OF EXAM: 11/11/2022 2:21 PM COMPARISON: NONE CLINICAL INDICATION: Male, 42 years old with history of I80.9 PHLEBITIS M25.572 PAIN IN LEG; patient cut his tendon on the left with a chain saw accident. surgery 1 week ago, swelling, no h/o dvt SIDE PERFORMED: left TECHNIQUE: The lower extremity deep venous system is examined utilizing real time linear array sonog damaris with graded compression, doppler sonography and color-flow sonography. VESSELS IMAGED: Common Femoral Vein Deep Femoral Vein Greater Saphenous Vein * Femoral Vein Popliteal Vein Small Saphenous Vein * Proximal Calf Veins (* superficial vessels) Left Leg: Negative for DVT tech impression given to Andria at office IMPRESSION: Grayscale, color doppler, spectral doppler imaging performed of the deep veins of the lo wer extremities. There is normal flow, compressibility, vascular waveforms.
== END | disposition home or self-care (01) ==
LOC: RADUSWWP 13:51
PROVIDERS: ATTEND Orthopaedic Surgery Hand Surgery
DX: I80.3 Phlebitis and thrombophlebitis of lower extremities, unspecified (principal); S86 Injury of muscle, fascia and tendon at lower leg level; F17.200 Nicotine dependence, unspecified, uncomplicated; X58.XXXD Exposure to other specified factors, subsequent encounter

== ENCOUNTER → 2023-04-21 | Outpatient (CLI) | payer MEDICAID ==
[2023-04-21 15:21] LABS: Basophils # (A) 0.05 X 10*3/uL (0.00-0.10); Basophils % (A) 0.8 %; Eosinophils # (A) 0.04 X 10*3/uL (0.04-0.35); Eosinophils % (A) 0.7 %; HCT 48.1 % (39.6-50.0); HGB 16.6 g/dL (13.0-17.0); Lymphocytes # (A) 1.89 X 10*3/uL (0.90-5.00); Lymphocytes % (A) 31.4 %; MCH 32.8 pg (27.0-32.0); MCHC 34.5 g/dL (32.0-37.0); MCV 95.1 FL (80.0-97.0); Mean Platelet Volume 10.7 FL (9.5-12.2); Monocytes # (A) 0.44 X 10*3/uL (0.20-1.00); Monocytes % (A) 7.3 %; NRBC Per 100 WBC 0 X 10*3/uL (0.00-0.01); Neutrophils # (A) 3.58 X 10*3/uL (1.80-7.70); Neutrophils % (A) 59.5 %; Platelet Count 240 X 10*3/uL (140-440); RBC 5.06 X 10*6/uL (4.40-5.60); RDW 12.6 % (11.5-14.5); WBC 6.02 X 10*3/uL (4.50-10.00)
== END | disposition home or self-care (01) ==
LOC: LABWHC1 09:00
PROVIDERS: ATTEND Nurse Practitioner Adult Health
DX: D45 Polycythemia vera (principal)
CPT/HCPCS: 36415; 82668; 85025